=== PATIENT | male | born 1980 | race Caucasian/White ===

== ENCOUNTER → 2021-12-02 14:20 | Outpatient (CLI) | payer OTHER, SELFPAY ==
--- NOTE | ~2021-12-02 | XR_ITS ---
EXAMINATION: XR knee LT 3V DATE: 12/02/2021 14:35 INDICATION: Unspecified injury of unspecified lower leg, initial encounter. TECHNIQUE: 3 views of left knee were obtained. COMPARISON: None. FINDINGS: Bone alignment is normal. No fracture. There is mild osteoarthritis of patellofemoral shelli rtment characterized by tiny osteophytes. There is a moderate-sized knee joint effusion. IMPRESSION: 1. Moderate-sized knee joint effusion. 2. Mild osteoarthritis of patellofemoral compartment of the knee. Reviewed, dictated and finalized at location A. PAN OPERATOR
== END ==
PROVIDERS: PCP Family Medicine; Visit Provider Nurse Practitioner Family
DX: S89.90XA Unspecified injury of unspecified lower leg, initial encounter (principal); M25.462 Effusion, left knee; M17.12 Unilateral primary osteoarthritis, left knee
CPT/HCPCS: 73562

== ENCOUNTER 2021-12-04 07:25 | Emergency (ER) | payer OTHER, SELFPAY ==
[2021-12-04 07:28] VITALS: BP 149/98; PULSE 100; RESP 18; TEMP 36.8; O2SAT 98
[2021-12-04] MEDS: KETOROLAC 30 MG/ML VIAL (*BKC) IM (07:53)
[2021-12-04 07:58] VITALS: BP 131/101; PULSE 95; RESP 16; TEMP 37.1; O2SAT 99
[2021-12-04 08:01] VITALS: BP 136/95; PULSE 93; RESP 18; TEMP 36.8; O2SAT 96
--- NOTE | 2021-12-04 08:06 | ED.LOWEXIN ---
HPI - Extremity Injury (Lower) General Chief Complaint: Extremity Injury, Lower Stated Complaint: knee injury Time Seen by Provider: 12/04/21 07:32 Source: patient History of Present Illness HPI Narrative: Patient presents with left knee pain. Right knee pain for the past few months however a few days ago he dropped his phone react weekly to catch it and felt a pop in his left knee ever since then he has had a lot of pain and swelling in his left knee. He saw his primary care doctor 2 days ago had plain films which were unremarkable and was referred to Ortho as well as had an MRI ordered. Patient did have pain so he came to the ER for further evaluation. Pain is achy, constant use his knee, radiates up his leg. Denies any focal numbness or weakness. Related Data Allergies Allergy/AdvReac Type Severity Reaction Status Date / Time morphine AdvReac Intermediate Vomiting Verified 12/02/21 13:49 Review of Systems Review of Systems: CONSTITUTIONAL: Denies fever, chills, or sweats. CARDIOVASCULAR: Denies chest pain, palpitations, or edema. RESPIRATORY: Denies cough or dyspnea. GASTROINTESTINAL: Denies abdominal pain, nausea, vomiting, or diarrhea. SKIN: Denies rash or itching. MUSCULOSKELETAL: Denies back pain, , or myalgia. NEUROLOGIC: Denies headache, numbness, dizziness, or weakness. [facility] Past Medical History Medical History (Updated 12/04/21 @ 08:10 by Grupo Love MD) Gout Family History Family History Mother Family history of diabetes mellitus in first degree relative Sibling Family history of diabetes mellitus in first degree relative Social History Social History Smoking status: Never smoker Alcohol intake: current Exam Narrative: GENERAL: Well-appearing, well-nourished, and in no acute distress. HEAD: Normocephalic, atraumatic. EYES: PERRLA and EOMI. ENT: Nares clear, no rhinorrhea or epistaxis. Mucous membranes moist. NECK: Supple. No masses. EXTREMITIES: Amount of swelling noted to the left knee no erythema or warmth valgus and varus stress is normal anterior posterior drawer normal there is a positive Juan Jose's no open or draining wounds range of motion is limited due to edema and pain. Patient has 4 out of 5 strength with knee flexion and extension on the left SKIN: Warm, dry, no rash. NEURO: No focal deficits. Alert and oriented x3. PSYCH: Normal mood and affect. Course Reevaluation(s) Reevaluation #1: Patient's prior x-rays were reviewed patient's primary care note was reviewed. Work-up thus far reviewed with the patient. He was given information for radiology to schedule his MR patient is comfortable with outpatient plan. Date: 12/04/21 Time: 08:00 Vital Signs Vital signs: Vital Signs Temperature 36.8 C 12/04/21 07:28 Pulse Rate 100 12/04/21 07:28 Respiratory Rate 18 12/04/21 07:28 Blood Pressure 149/98 H 12/04/21 07:28 Pulse Oximetry 98 12/04/21 07:28 Temperature 36.8 C 12/04/21 08:15 Pulse Rate 84 12/04/21 08:15 Respiratory Rate 16 12/04/21 08:15 Blood Pressure 132/95 H 12/04/21 08:15 Pulse Oximetry 94 12/04/21 08:15 MDM - Extremity Injury (Lower) MDM Narrative Medical decision making narrative: H&P as above, vss, pt looks clinically well, exam with stable left knee but positive Juan Jose's, prior imaging reviewed and unremarkable, additional labs/img considered, symptomatic relief available as needed, on reevaluation pt continues to looks clinically well. Suspect meniscus injury, dns fracture, dislocation, major neurovascular compromise. plan to tx/monitor as op w/ pcm f/u findings/plan discussed with pt, pt agree/comfortable with plan, return precautions given Discharge Plan Discharge Clinical Impression: Knee injury Qualifiers: Encounter type: initial encounter Laterality: left Qualified Code(s): S89.92XA - Unspecified injury o
[2021-12-04 08:15] VITALS: BP 132/95; PULSE 84; RESP 16; TEMP 36.8; O2SAT 94
== END 2021-12-04 08:20 | disposition home or self-care (01) ==
PROVIDERS: Emergency Provider Emergency Medicine; PCP Family Medicine
DX: S89.92XA Unspecified injury of left lower leg, initial encounter (principal); M10.9 Gout, unspecified; X50.9XXA Other and unspecified overexertion or strenuous movements or postures, initial encounter
CPT/HCPCS: 96372; 99283; J1885

== ENCOUNTER → 2021-12-27 17:38 | Outpatient (CLI) | payer OTHER, SELFPAY ==
--- NOTE | ~2021-12-27 | MR_ITS ---
EXAMINATION: MR knee LT wo con DATE: 12/27/2021 18:16 INDICATION: Medial and lateral left knee pain and generalized swelling pain post injury TECHNIQUE: Magnetic resonance imaging (MRI) of the left knee was performed without intravenous contra st. Sequences included coronal PD-weighted FSE, coronal PD-weighted FS FSE, sagittal T2-weighted FSE , sagittal PD-weighted FS FSE and axial PD weighted fat saturated FSE. COMPARISON: Left knee radiographs dated 12/02/2021 FINDINGS: Medial compartment: Complex tear of the medial meniscus including a laterally displaced bucket-handle tear conifer a sign ificant portion of the meniscal tissue which extends anteroposteriorly along the medial aspect of the intercondylar eminence. There are additional secondary tear planes within the remaining nondisplaced portion of the posterior horn. Small region of partial-thickness chondral fissuring at the lateral s betina of the anterior weightbearing medial femoral condyle. Lateral compartment: Lateral meniscus is normal. Articular cartilage is normal. Patellofemoral compartment: Deep chondral and ulceration at the superolateral aspect of the medial patellar facet with minimal un derlying subarticular edema-like marrow signal changes. No significant stenosis relative preserved bu t with deep chondral fissuring at the patellar apical ridge and medial aspect of the lateral patellar facet and at the central aspect of the medial patellar facet where the cartilage has a frayed crabme at-like appearance. Deep chondral fissuring at the superolateral aspect of the medial trochlea and ca udal aspect of the patellar apical ridge, both sides with mild underlying cortical irregularity. Ligaments and tendons: High grade partial if not complete tear at the proximal aspect of the anterior cruciate ligament incl uding denudation of the femoral footplate of the posterolateral bundle. The posterior cruciate ligame nt is normal. The medial collateral ligament and fibular collateral ligament complex are normal. The extensor mechanism is normal. Moderate tendinopathy and small intrasubstance tear at the tibial inser tion of the semimembranosus tendon which involves a relatively small portion of the cross-sectional a mirella of the tendon. The remaining visualized medial and lateral hamstring tendons as well as the iliot ibial band are normal. Fluid: Moderate-sized left knee joint effusion with mild synovitis along the margins of the suprapatellar po uch and posterior margin of Hoffa's fat pad. There is a suprapatellar plical band as well as a medial plical band, bladder crossing minimally beyond the superomedial rim of the medial trochlea. No loose osteochondral bodies identified. 4.9 x 1.6 x 1.9 cm fluid collection situated deep to the pes anseri nus and partially surrounding the distal semimembranosus tendon consistent with mild pes anserinus bu rsitis. Osseous/other: Bone alignment is normal. No fracture or pathologic marrow replacing process. IMPRESSION: 1. High-grade partial if not complete tear of the proximal anterior cruciate ligament. 2. Complex medial meniscal tear including a laterally displaced bucket-handle flap comprising a signi ficant portion of the meniscal tissue. 3. Mild osteoarthritis with deep chondral fissuring in both the medial and patellofemoral compartment s. 4. Moderate tendinopathy and small partial-thickness tear at the tibial insertion of the distal semim embranosus tendon. 5. Pes anserinus bursitis. 6. Moderate-sized left knee joint effusion. Reviewed, dictated and finalized at location A. IMPRESSION: 1. High-grade partial if not complete tear of the proximal anterior cruciate li gament. 2. Complex medial meniscal tear including a laterally displaced bucket-h
== END ==
PROVIDERS: PCP Family Medicine; Visit Provider Nurse Practitioner Family
DX: S89.90XA Unspecified injury of unspecified lower leg, initial encounter (principal); M23.8X2 Other internal derangements of left knee; M17.12 Unilateral primary osteoarthritis, left knee; M71.562 Other bursitis, not elsewhere classified, left knee; M25.462 Effusion, left knee
CPT/HCPCS: 73721

== ENCOUNTER 2022-01-14 01:18 | Day surgery (SDC) | payer OTHER, SELFPAY ==
[2022-01-04 09:57] VITALS: BMI 31.1
--- NOTE | 2022-01-04 10:13 | PC.NURSE ---
Report to the Outpatient Waiting Room, entrance under the green pavilion located off [facility], at 1000 on date 01-14-22. OR Time: 1200. - You and your visitor will be asked a series of questions to screen for COVID 19 for your protection. - A mask is required within the hospital. Preoperative COVID Testing Requirements: No COVID Test needed if: (proof is required; if not received patient will have Rapid Test prior to entry) - Patient has received COVID Vaccine at least 14 days prior to procedure date or - Patient has positive COVID test result within last 90 days of surgery date. COVID Test needed if above criteria is not met If not COVID vaccinated a COVID test must be conducted within 72 hours of surgery and patient is asked to isolate self from time of testing until procedure. You will go to the [facility] for your COVID testing. The [facility] [facility] is located at the corner of [address] [facility]. You will only be called if COVID results are positive and your surgeon may reschedule your elective surgery date. Patients may have clear liquids (water, carbonated beverages, clear teas, apple juice) until 3 hours prior to surgery with a maximum of 20 ounces. 0900 - No food from midnight until time of surgery - Infants may have breast milk until 4 hours before surgery, formula 6 hours prior to surgery. - Children will be allowed to drink immediately following surgery. If applicable, please bring a bottle or sippy cup to assist with drinking. Juice, water, soda, and popsicles are readily available. For infants on formula, please bring formula the day of surgery. Pacifiers are allowed. Take the following medications with a SIP of water the morning of surgery: allopurinol; tylenol if needed Medications to discontinue per physician: nabumetone Date to take last dose: 01-07-22 Please no make-up, nail azerbaijani, hairspray, perfume, deodorant, or body powder the day of surgery. No jewelry (including any body piercings) or valuables the day of surgery, leave them at home. Please take a shower or bath the night before, or the morning of, surgery with an antibacterial soap. Wear comfortable, loose fitting clothing. Children are encouraged to wear pajamas. - Jewelry must be removed prior to entering the operating room. Rings and piercings that are not removed may be cut off. - The hospital will not accept responsibility for valuables. - Please leave all valuables, including medications, at home the day of surgery. If you are going home after surgery, a licensed tram driver must drive you home. - NO public transportation without another adult. - We recommend that an adult stay with you for 24 hours following discharge. - We also recommend that you do not drive, make important decision, drink alcoholic beverages, or take any drugs that were not prescribed by your health care provider for at least 24 hours after your discharge time. For Pediatric surgeries, we recommend two adults accompany the child home (only one inside the building at this time). One visitor will be allowed to accompany the patient into the hospital. Patients visitor will be instructed to remain with patient at all times or leave the building. We will allow the visitor to come back to the postoperative area when patient is ready. Follow any additional instructions given to you from your surgeon. Telephone instructions given to Surya Holt and asked if any additional questions and then verbalized understanding. Patient advised to call surgeon office or pre surgery nurse liaison [phone] if any additional questions.
[2022-01-14] VITALS (8 sets, daily range): BP systolic 110–151; BP diastolic 63–94; PULSE 68–92; RESP 12–16; TEMP 36.3–36.4; O2SAT 96–100; BMI 31.1
--- NOTE | 2022-01-14 11:19 | WPDANESEPPF ---
Anes - Initial Pre Proc Eval Procedure: Operation Date: 01/14/22 12:00 Proposed Procedures p Left Anterior Cruciate Ligament Reconstruction, Medial Meniscectomy - Devin Ortega MD Date/Time: 01/14/22 11:19 Surgeon: Devin Ortega MD Pre Op Diagnosis: complete ACL tear, medial meniscus tear left knee Patient Data Age: 41 Gender: M Height: 1.73 m Weight: 92.99 kg Allergies Allergy/AdvReac Type Severity Reaction Status Date / Time morphine AdvReac Intermediate Vomiting Verified 01/04/22 09:31 Home Medications Medication Instructions Recorded Confirmed Type allopurinol 300 mg tablet 300 mg PO DAILY #90 tablet 12/02/21 01/04/22 Rx nabumetone 500 mg PO BID 01/04/22 01/04/22 History Patient hx anesthesia problems: post op nausea/vomiting Family hx anesthesia problems: none Results Review: All pre-operative results and documents have been reviewed as part of the pre-operative evaluation. PMFSH Past Medical History Medical History Gout History of kidney cancer Surgical History Surgical History History of cholecystectomy History of ear surgery x3 History of eye surgery Family History Family History Mother Family history of diabetes mellitus in first degree relative Sibling Family history of diabetes mellitus in first degree relative Social History Social History Smoking status: Light tobacco smoker Tobacco type: cigars Second hand tobacco smoke exposure: No Additional smoking assessment comments: occasionally smokes a cigar Alcohol intake: current Drinks per week: 28 Alcohol use details: few beers and whiskey Substance use: never Substance use type: does not use Living arrangements: with family Spiritual care concerns: No Anes - Eval Final PreProcedure Day of Procedure 01/14/22 11:19 Patient weight: overweight Heart: regular rate and rhythm Lungs: clear to auscultation Airway: Mallampati scale class II Neurological: alert and oriented Last oral intake: >/= 8 hours ASA classification: III Emergent: no Anesthetic plan: proceed Anesthesia type and monitoring: general LMA and standard monitoring Results Review: All pre-operative results and documents have been reviewed as part of the pre-operative evaluation. Informed Consent: The patient's anesthetic plan and its attendant risks and benefits were discussed with the patient/family/POA. Questions were solicited and answers provided to the satisfaction of the patient/family/POA.
--- NOTE | 2022-01-14 11:53 | WPDHPUPDATE1 ---
History and Physical Update Update Date/Time: 01/14/22 11:53 History and Physical has been reviewed, including an updated exam of the patient. There are NO changes in the patient's condition. Risks, benefits, and alternatives have been discussed and questions answered. Patient agrees to proceed with procedure.
[2022-01-14] MEDS: LACTATED RINGERS 1,000 ML 30 ML IV CONT ×2 (12:00→14:59)
[2022-01-14] MEDS: ACETAMINOPHEN 500 MG TABLET 1000 MG PO (12:00)
[2022-01-14] MEDS: KETOROLAC 15 MG/ML VIAL (*BKC) IV PUSH (12:00)
[2022-01-14] MEDS: ceFAZolin 2 GM/D5W 50 ML 2 GM/50 ML BAG IVPB (12:16)
[2022-01-14] MEDS: SCOPOLAMINE 1.5 MG PATCH TRANSDERM (12:22)
[2022-01-14] MEDS: TRANEXAMIC ACID 1,000 MG/10 ML AMPUL 1000 MG IV PUSH (14:33)
[2022-01-14] MEDS: BUPIVACAINE HCL 0.25% PF 30 ML VIAL 10 ML INFILTRATE (14:43)
--- NOTE | 2022-01-14 15:29 | W.PM.PROC2 ---
Procedure Note - Detailed Date of Procedure 01/14/22 Pre-op Diagnosis complete ACL tear, medial meniscus tear left knee Post-op Diagnosis Same Procedure Performed 1. Arthroscopic ACL reconstruction with patellar tendon allograft, left knee. 2. Arthroscopic partial medial meniscectomy left knee. Surgeon Devin Ortega MD Anesthesia General Indications Severe instability and locked knee. Findings Bucket-handle medial meniscus tear. Appeared acute on chronic with significant degeneration of the meniscus. Subtotal meniscectomy performed. Complete ACL disruption with healing to the PCL ligament. Exam revealed marked deficiency of the ACL. the lateral meniscus was normal. Mild chondromalacia on the medial femur grade 1/2. Grade 1 trochlea chondromalacia in a small central aspect. Grade 1/2 patellar central chondromalacia. Description of Procedure The patient was given preoperative antibiotics prior to going to the operating room. A general anesthetic was administered. Examination under anesthesia was performed. The leg was prepped and draped in the usual sterile fashion after placing the leg in the arthroscopic leg godinez. Standard inferomedial, inferolateral and superior-medial arthroscopic portals were established. In flow was obtained with the saline pump. The medial meniscus was displaced. It could not be anatomically reduced. It was quite damaged and therefore debridement commenced. Tapering of the meniscal edge was performed along the medial aspect. Significant displaced tissue in the posterior area was carefully removed. The residual ACL tissue was debrided with the arthroscopic shaver and the radioablation probe. No significant notchplasty was required. The allograft was fashioned on the back table at this point. Attention was then turned back to the knee. The limb was exsanguinated and the tourniquet reinflated to 300 millimeters of mercury. The drill guide was placed at the holy cross ACL footprint on the femur. An anatomic location was chosen, and confirmation of safe placement with the over the top guide. The flexible guide wire was drilled out of the lateral thigh anterior to midline. The flexible reamer was used to drill the tunnel for the femoral graft. A suture was placed through the pin and brought out through the thigh. The ACL guide was used at this time to drill a guide pin for the tibial tunnel. A separate small incision was utilized at the medial tibia. This was reamed with the strait reamer. The tibia guide was set at 55?. Typical anatomic landmarks were used for the tibial footprint. The lateral meniscus was utilized, and the location placed anatomically. The graft was then fed through the tibial tunnel into the femur. The graft was carefully positioned with the bone block anteriorly on the femur. A small notch was created to accept the screw. The nitinol wire was placed and the 7 x 20 millimeter interference screw was placed with excellent purchase. The graft was cycled. The tiba bone block was secured with the knee at 30? of flexion and slight posterior drawer was applied. The distal screw was placed similarly over the nitinol wire. An 8 x 25 millimeter titanium screw was used. Fixation was excellent. Care was taken to assure that there was no impingement of the graft. The arthroscopic instruments were removed. The tourniquet was released. The wounds were closed with interrupted 4-0 Monocryl suture followed by Steri-Strips. The deeper tissues on the tibia side were closed with 2-0 Vicryl suture. Sterile bulky dressing was applied with light compression. A knee immobilizer was placed. The patient was extubated and brought to the recovery room. There were no complications. Implants [place] titanium interference screw at the femur and tibia. Patellar tendon and bone allograft. Estimated Blood Loss -30.0 Drains No Packing No Pathology None sent Complications No immediate complications Condition St
== END 2022-01-14 16:55 | disposition home or self-care (01) ==
PROVIDERS: PCP Family Medicine; Visit Provider Orthopaedic Surgery
PROC: (CPT 29888; principal; 2022-01-14 12:00)
DX: S83.512A Sprain of anterior cruciate ligament of left knee, initial encounter (principal); S83.212A Bucket-handle tear of medial meniscus, current injury, left knee, initial encounter; M94.262 Chondromalacia, left knee; X50.0XXA Overexertion from strenuous movement or load, initial encounter; M10.9 Gout, unspecified; Z85.528 Personal history of other malignant neoplasm of kidney; Z72.0 Tobacco use
CPT/HCPCS: 29888; 29881; A9270; C1713; J0690; J1100; J1170; J1885; J2250; J2405; J2704; J3010; J7120; L1830

== ENCOUNTER 2022-10-04 07:58 | Outpatient (CLI) | payer OTHER, SELFPAY ==
--- NOTE | 2022-10-26 18:09 | WPDSLEEPSTUD ---
Sleep Study Date of Study: 10/04/22 Ordering Provider: Rich Vazquez MD Interpreting Physician: Paula Almnaza MD Sleep Study Type: Polysomnogram Height: 1.73 m Weight: 90.718 kg Body Mass Index: 30.4 Neck Circumference (inches): 16.5 [place]: 11 Reason for Sleep Study Hypersomnolence Sleep History Surya Holt is a 41-year-old man who reports difficulty sleeping. He always feels tired. He has had poor sleep for over 20 years, since he was in the . This is worse over the last few years. Sometimes he uses adhesive nasal strips which seem to help. There is a family history of sleep issues, his father has sleep apnea. This patient has difficulty falling asleep and staying asleep. 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 He has excessive daytime sleepiness he frequently awakens from sleep feeling short of breath. He rarely awakens at night with heartburn, belching or coughing. He always snores very loudly. He frequently has trouble sleeping with a cold. He frequently wakes up gasping for breath at night. He always has breathing problems at night observed by others. He occasionally sweats excessively at night. He frequently notices his heart pounding or beating irregularly at night. He always falls asleep during the day but never involuntarily, never while driving. Does not have loss of muscle tone with strong emotion. He rarely has daytime difficulties due to excessive sleepiness. He does not feel paralyzed on waking or falling asleep. He does not have vivid dreamlike scenes on waking or falling asleep. He does not feel afraid to go to sleep. He occasionally has nightmares. He rarely remembers his dreams. He constantly has racing thoughts. He occasionally has sadness or depression. He frequently has anxiety. He frequently has muscular tension. He occasionally notices parts of his body jerking. He occasionally kicks at night. He rarely has crawling and aching feelings in his legs. He rarely has any kind of leg pain at night. He rarely has morning jaw pain. He frequently grinds his teeth during sleep. He frequently is bothered by pain during the day. He occasionally is awakened by pain at night. He constantly wakes up feeling stiff in the morning. He frequently wakes up with sore achy muscles. He always wakes up with pain in the neck and spine. He has fatigue. He has had his adenoids removed. Normal bedtime is between 11:30 p.m. and 12 midnight, taking different amount of time to fall asleep at night. He may wake up after Geraldo hour of sleep. He tosses and turns frequently. When he wakes at night he may stay awake for 5 minutes or sometimes as long as an hour. He wakes the morning at 5:30 a.m.. On weekends, his bedtime is 11:30 p.m. at the earliest but as late as 2:00 a.m.. He may wake anywhere between 6 and 7:00 a.m.. He estimates getting between 4 and 6 hours of interrupted sleep on most nights. He takes naps in the afternoon. A short nap lasting 10 or 15 minutes is not refreshing. He is usually drowsy for 2 hours after waking. Habits: He has smoked tobacco. Caffeine 2 3 cups of coffee a day +1-2 2 energy drinks. Alcohol, 2 or 3 oz of whiskey nightly. No recreational substances. [facility] Past Medical History Medical History (Updated 10/26/22 @ 19:58 by Paula Almanza MD) Gout History of kidney cancer Surgical History Surgical History (Updated 10/26/22 @ 18:30 by Paula Almanza MD) History of adenoidectomy History of cholecystectomy History of ear surgery x3 History of eye surgery Family History Family History Mother Family history of diabetes mellitus in first degree relative Sibling Family history of diabetes mellitus in first degree relative Social History Social History Smoking status: Current some day smoker Tobacco t
[2022-10-26 20:00] VITALS: BMI 30.4
== END 2022-10-05 05:36 | disposition home or self-care (01) ==
LOC: ANHCSM 08:00
PROVIDERS: PCP Family Medicine; Visit Provider Family Medicine
DX: G47.10 Hypersomnia, unspecified (principal); R06.83 Snoring
CPT/HCPCS: 95810

== ENCOUNTER 2025-09-10 07:43 | Outpatient (CLI) | payer OTHER, SELFPAY ==
[2025-09-10 08:48] LABS: Alanine Aminotransferase 170 U/L (6-50); Albumin Level 4.8 g/dL (3.5-5.1); Alkaline Phosphatase 58 U/L (38-126); Aspartate Amino Transferase 94 U/L (17-59); Bilirubin,Total 0.6 mg/dL (0.2-1.3); Total Protein 8.2 g/dL (6.3-8.2); Uric Acid 6.6 mg/dL (3.5-8.5)
== END 2025-09-10 07:44 | disposition home or self-care (01) ==
LOC: ANHLAB 07:44
PROVIDERS: PCP Family Medicine; Visit Provider Nurse Practitioner Adult Health
DX: Z13.220 Encounter for screening for lipoid disorders (principal); E79.0 Hyperuricemia without signs of inflammatory arthritis and tophaceous disease; N52.9 Male erectile dysfunction, unspecified
CPT/HCPCS: 36415; 80076; 84550